=== PATIENT | female | born 1955 | race Caucasian/White ===

== ENCOUNTER → 2023-08-13 09:48 | Outpatient (REF) | payer MEDICARE, OTHER, SELFPAY | LOC: HWRAD 09:48 | PROVIDERS: ATTENDING PHYSICIAN Nurse Practitioner Family | DX: Z78.0 Asymptomatic menopausal state (principal); Z12.31 Encounter for screening mammogram for malignant neoplasm of breast; M85.80 Other specified disorders of bone density and structure, unspecified site | CPT/HCPCS: 77063; 77067; 77080 ==

== ENCOUNTER 2023-08-14 13:54 | Emergency (ER) | payer MEDICARE, OTHER, SELFPAY ==
[2023-08-14 14:01] VITALS: BP 132/79
[2023-08-14 14:29] LABS: COVID-19 Antigen Negative (Negative)
--- NOTE | 2023-08-14 16:13 | ED.GENMED ---
History of Present Illness
General
Chief Complaint: Cold/Flu/URI Symptoms
Source: patient
Exam Limitations: none
Time Seen by Provider: 08/14/23 15:21
Nursing documentation reviewed up to this point in time: agreed with
Travel History
Have you had any contact with someone who has COVID-19?: No
Do you have any symptoms of coronavirus? Fever > 100 degrees, chills, cough, shortness of breath, sore throat, loss of taste or smell, muscle aches, or headache?: Yes
Symptoms:: MOISE
History of Present Illness
History of Present Illness:
68-year-old female presents to the ER for evaluation. Patient ports for the past 2 weeks she has had what she thinks is a sinus faction however complains of worsening headache.. She has had a lot of nasal congestion pressure behind her eyes and
pressure in her face. She has been taking Afrin nasal spray and using saline flushes in her nose. She does started Sudafed 5 days ago. Today she wiped her nose and noticed small amount of blood from right nostril. She tried to follow-up with a
doctor but they recommended to come to the ER. She denies any fevers but has had chills. patient reports she has seen ENT in the past for sinus issues.
Past History
Past History
ED Past Medical History: None
ED Past Surgical History:
Social History
Tobacco: Former smoker
Alcohol: None
Drug: None
Personal:
Living: with family
Employment: Employed
Family History
Family History: Negative Early CAD
Review of Systems
Review of Systems
Allergies reviewed?: Yes
All Other Systems: ROS reviewed and negative except as documented in HPI and ROS
Constitutional: Reports chills
EENT: Reports other (Facial pain sinus congestion)
Respiratory: Reports no symptoms
ABD/GI: Reports no symptoms
Musculoskeletal: Reports no symptoms
Skin: Reports no symptoms
Neurological: Reports headache; Denies dizzy
Hematologic/Lymphatic: Reports no symptoms
Psychiatric: Reports no symptoms
Phy Exam
General Physical Exam
General Presentation: no apparent distress
General age: appears stated age
General Skin: warm and dry
General Habitus: normal
General Mental: alert
General Hydration: appears well hydrated
ENT Exam
ENT Exam: neck supple and other (Pressure to bilateral frontal sinus region )
Cardiovascular Exam
Cardiovascular Exam: regular rate/rhythm, no murmur and normal peripheral pulses
Pulmonary Exam
Pulmonary Exam: lungs clear and no respiratory distress
Neurological Exam
Neurological Exam: alert and oriented x3
[place] Coma Scale
Eye Opening: Spontaneous
Verbal Response: Oriented
Motor Response: Obeys Commands
GCS Total Score: 15
Musculoskeletal Exam
Musculoskeletal Exam: full ROM
Skin Exam
Skin Exam: normal color and warm/dry
Psychiatric Exam
Psychiatric Exam: normal mood/affect
Course
Orders/Labs/Results
Orders:
Orders
08/14/23 14:07
COVID-19 Antigen Urgent
Source: Nasal Swab
Influenza A+B Rapid Molecular Urgent
KRISTINE Source: Nasal Swab
Specimen Description:
08/14/23 16:02
CT Head W/o Iv Contrast Urgent
Comment:
Reason For Exam: headache
CT Sinuses W/o Iv Contrast Urgent
Comment:
Reason For Exam: headache
08/14/23 18:16
Amoxicillin [Amoxil] 500 mg PO NOW STA
Dexamethasone [Decadron] 10 mg PO NOW STA
Vital Signs
Initial and Last Documented VS:
Initial Vital Signs
Temp Pulse Resp BP Pulse Ox
97.6 F 83 16 132/79 97
08/14/23 14:01 08/14/23 14:01 08/14/23 14:01 08/14/23 14:01 08/14/23 14:01
Last Documented Vital Signs
Temp Pulse Resp BP Pulse Ox
97.6 F 83 16 132/79 97
08/14/23 14:01 08/14/23 14:01 08/14/23 14:01 08/14/23 14:01 08/14/23 14:01
Service Dispatcher consulted with Physician
Service Dispatcher consulted with physician?: Yes
Name of Physician Consulted: Antwon
MDM/Problems Addressed
Differential Diagnosis Includes:
Not limited to URI viral syndrome sinusitis
MDM/Problems Addressed:
Patient is a 60-year-old female with what she is describing intermittent sinus issues in the past has been seen by ENT presents with sinus pain for the past 2 weeks along with headache. She reports has had chills at times but no fever. She has
been using Sudafed for the past 5 days and Afrin recently had slight epistaxis this morning which resolved. She tried to call her family doctor who recommended she come here to the ER. She is awake alert no acute distress afebrile no meningismus
mild tenderness to the frontal sinuses. CT head negative. Sinus CT shows minimal none acute bilateral maxillary sinusitis however with 2-week complaint of sinus facial pain and sinus congestion will DC with antibiotics and 1 dose of steroids with
close outpatient follow with her ENT specialist. Case reviewed with ED attending.
*Critical Care Note
Total Time (30-74mins, 75-104mins- exclusive of procedures): Not Applicable
ED Attending Note
-
Portions of this chart may have been created with voice recognition software.� Occasional wrong word or��sound alike� substitutions may have occurred due to the inherent limitations of voice recognition software.
Discharge Plan
Departure
Patient Disposition: Home (Routine Discharge)
Date of Disposition: 08/14/23
Time of Disposition: 18:17
Patient with high blood pressure during this ER visit?: Yes
Condition: Fair
Covid-19: Not Applicable
Discharge Problem:
Sinusitis
Instructions: Sinusitis, Adult ED
Prescriptions:
New
amoxicillin 500 mg capsule
500 mg PO Q8H Qty: 30 0RF
No Action
methylprednisolone [Medrol (Juan Manuel)] 4 MG tablets,dose pack
4 tab PO . DIRECT Qty: 1 0RF
Referrals:
Marii Stovall PRESIDENT AND CEO [Family Provider] -
Activity Restrictions/Additional Instructions:
A prescription for steroids was sent to your pharmacy take as directed. You are given the first dose here in the ER. You are also given 1 steroid dose. Stop Afrin!!
Follow-up close with your family doctor in the next several days and return if any worsening of symptoms
Interventions
Interventions:
*Risk Screen - Suicide Last Done: 08/14/23 15:33
*General Assessment Last Done: 08/14/23 15:33
*Neglect/Abuse Screening Last Done: 08/14/23 15:33
ED- Fall Risk Assessment Last Done: 08/14/23 15:33
ED- Pulmonary Assessment Last Done: 08/14/23 15:33
Discharge Date and Time
Print Language: YORUBA
[2023-08-14] MEDS: DECADRON 10 MG PO (18:29)
[2023-08-14] MEDS: AMOXIL 500 MG PO (18:29)
== END 2023-08-14 18:36 | disposition home or self-care (01) ==
LOC: EMR 13:54
PROVIDERS: Emergency Medicine; EMERGENCY PHYSICIAN Student in an Organized Health Care Education/Training Program; FAMILY PHYSICIAN Nurse Practitioner Family
DX: J32.0 Chronic maxillary sinusitis (principal); Z11.52 Encounter for screening for COVID-19; R03.0 Elevated blood-pressure reading, without diagnosis of hypertension; Z87.891 Personal history of nicotine dependence
CPT/HCPCS: 99284; 70450; 70486; 87502; 87811

== ENCOUNTER → 2024-09-19 12:53 | Outpatient (REF) | payer MEDICARE, OTHER, SELFPAY | LOC: HWWDC 12:53 | PROVIDERS: ATTENDING PHYSICIAN Nurse Practitioner Family | DX: Z12.31 Encounter for screening mammogram for malignant neoplasm of breast (principal) | CPT/HCPCS: 77063; 77067 ==